=== PATIENT | male | born 1950 | race Hispanic/Latino ===

== ENCOUNTER 2019-01-20 16:20 | Inpatient (IN) | payer MEDICARE | END 2019-01-22 16:00 | disposition home or self-care (01) | LOC: EDH 16:20 → EDHIP 19:06 → 4CH 21:00 ==

== ENCOUNTER 2019-02-13 03:00 | Emergency (ER) | payer OTHER, MEDICARE ==
[~2019-02-13 03:00] MED LIST: ATOR10 PO; CARV3.12 PO; CLOP75TA32 PO; GLIP1TAB5 PO
[2019-02-13] MEDS ORDERED: FAMOTIDINE 20MG TAB 20 MG TAB ONE (03:17)
[2019-02-13] MEDS ORDERED: PREDNISONE 20 MG TABLET ONE (03:18)
[2019-02-13] MEDS ORDERED: ALBUTEROL SULFATE 0.083% 2.5 MG/3 ML INH IH ONE (03:57)
== END 2019-02-13 04:16 | disposition home or self-care (01) ==
LOC: EDH 03:00
DX: L50.0 Allergic urticaria (principal); I10 Essential (primary) hypertension; E78.5 Hyperlipidemia, unspecified; E11.9 Type 2 diabetes mellitus without complications; Z86.73 Personal history of transient ischemic attack (TIA), and cerebral infarction without residual deficits; Z79.899 Other long term (current) drug therapy; Z72.0 Tobacco use
CPT/HCPCS: 94640

== ENCOUNTER 2019-12-25 13:26 | Emergency (ER) | payer OTHER, MEDICARE ==
[2019-12-25 14:05] LABS: BASOPHILS % (AUTO) 0.3 % (0.0-5.0); EOSINOPHILS % (AUTO) 0.2 % (0.0-8.0); HEMATOCRIT 42.5 % (42-54); LYMPHOCYTES % (AUTO) 4.9 % (21.0-51.0); MEAN CORPUSCULAR HGB CONC 34.4 g/dL (32.0-36.0); MEAN CORPUSCULAR VOLUME 95.9 fL (79-99); MONOCYTES % (AUTO) 7.3 % (3.0-13.0); PLATELET COUNT (AUTO) 212 K/uL (130-400); RED BLOOD CELL COUNT(AUTO) 4.43 MIL/uL (4.50-6.20)
[2019-12-25 14:14] LABS: CREATININE 1.3 mg/dL (0.5-1.5)
[2019-12-25 14:15] LABS: INR 0.96 (0.85-1.15); PARTIAL THROMBOPLASTIN TIME 28.5 SEC (26.3-35.5); PROTHROMBIN TIME 10.1 SEC (9.6-11.6)
[2019-12-25 14:19] LABS: ALBUMIN 4.3 g/dL (3.5-5.0); TOTAL PROTEIN, SERUM 7.9 g/dL (6.0-8.3)
[2019-12-25 14:39] LABS: B-TYPE NATRIURETIC PEPTIDE 14 pg/mL (0-100)
[2019-12-25] MEDS ORDERED: SODIUM CHLORIDE 0.9% 1000ML 1,000 ML IV ONE (14:59)
[2019-12-25] MEDS ORDERED: OSELTAMIVIR PHOSPHATE 75 MG CAP ONE (14:59)
[2019-12-25 16:28] LABS: APPEARANCE,URINE Clear (CLEAR); BILIRUBIN,URINE Negative (NEGATIVE); COLOR,URINE Yellow (YELLOW); GLUCOSE, URINE (UA) Negative (NEGATIVE); KETONES,URINE Negative (NEGATIVE); LEUKOCYTE ESTERASE ,URINE Negative (NEGATIVE); NITRATE,URINE Negative (NEGATIVE); OCCULT BLOOD,URINE Negative (NEGATIVE); PROTEIN,URINE POS 2+ mg/dL (NEGATIVE); UROBILINOGEN,URINE 0.2 mg/dL (0.2-1.0)
[2019-12-25 16:43] LABS: BACTERIA,URINE Few /HPF (None Seen); RBC,URINE None Seen /HPF (0-1); SQUAMOUS EPITHELIAL CELL,UR 0-2 /HPF (0-2); WBC,URINE None Seen /HPF (0-1)
[2019-12-25 16:44] LABS: URIC ACID CRYSTALS,URINE Many /LPF (None Seen)
== END 2019-12-25 16:42 | disposition home or self-care (01) ==
LOC: EDH 13:26
DX: J09.X2 Influenza due to identified novel influenza A virus with other respiratory manifestations (principal); E11.65 Type 2 diabetes mellitus with hyperglycemia; E78.5 Hyperlipidemia, unspecified; I10 Essential (primary) hypertension
CPT/HCPCS: 36415; 71045; 80053; 81001; 82150; 82550; 83605; 83690; 83880; 84484; 85025; 85610; 85730; 87040 ×2; 87804 ×2; 93005; 96360; 99285; J7030

== ENCOUNTER → 2021-05-07 | Outpatient (CLI) | payer OTHER, MEDICARE ==
[~2021-05-07] MED LIST changes: +METO5 PO; +METR500T PO
== END | disposition home or self-care (01) ==
LOC: SHCH 10:32
PROVIDERS: ATTEND Internal Medicine Cardiovascular Disease
DX: R94.31 Abnormal electrocardiogram [ECG] [EKG] (principal); R07.9 Chest pain, unspecified
CPT/HCPCS: 93306; 93356

== ENCOUNTER 2022-02-17 08:23 | Inpatient (IN) | payer OTHER, MEDICARE ==
[~2022-02-17] VITALS: Ht 167.6 cm; Wt 66.9 kg
[2022-02-17 09:21] LABS: BASOPHILS % (AUTO) 0.8 % (0.0-5.0); HEMATOCRIT 36.2 % (42-54); MEAN CORPUSCULAR HEMOGLOBIN 32.3 pg (27.0-33.0); MEAN CORPUSCULAR HGB CONC 33.4 g/dL (32.0-36.0); MEAN CORPUSCULAR VOLUME 96.5 fL (79-99); MONOCYTES % (AUTO) 8.5 % (3.0-13.0); NEUTROPHILS % (AUTO) 66.1 % (40.0-77.0); PLATELET COUNT (AUTO) 545 K/uL (130-400); RED BLOOD CELL COUNT(AUTO) 3.75 MIL/uL (4.50-6.20); RED CELL DISTRIBUTION WIDTH 12.6 % (11.0-15.5); WHITE BLOOD COUNT (AUTO) 8.4 K/uL (4.8-10.8)
[2022-02-17 09:28] LABS: CREATININE 1.2 mg/dL (0.5-1.5); POTASSIUM 4.9 mmol/L (3.5-5.1)
[2022-02-17] MEDS ORDERED: ASPIRIN 81MG CHEW TAB PO SCH (09:30)
[2022-02-17 09:33] LABS: ALBUMIN 3.4 g/dL (3.5-5.0); BILIRUBIN,TOTAL 0.4 mg/dL (0.2-1.0); TOTAL PROTEIN, SERUM 7.2 g/dL (6.0-8.3)
[2022-02-17] MEDS ORDERED: CLOPIDOGREL 300MG TAB PO SCH (10:00)
[2022-02-17] MEDS ORDERED: FUROSEMIDE 40MG VIAL IV SCH (10:00)
[2022-02-17] MEDS ORDERED: IOHEXOL-350 75 ML VIAL IV ONE (10:49)
[2022-02-17] MEDS: FUROSEMIDE 40MG VIAL IV SCH ×2 (11:25→22:32)
[2022-02-17] MEDS ORDERED: ACETAMINOPHEN 325 MG TAB PO PRN (12:30)
[2022-02-17] MEDS ORDERED: AEC81 PO (13:46)
[2022-02-17] MEDS ORDERED: CARV6.25 PO (13:46)
[2022-02-17] MEDS: ATORVASTATIN 20 MG TABLET PO SCH (21:11)
[2022-02-17] MEDS: CARVEDILOL 3.125 MG TABLET PO SCH (21:11)
[2022-02-17 21:45] VITALS: BP 138/92
[2022-02-18] VITALS (7 sets, daily range): BP systolic 100–132; BP diastolic 44–69
[2022-02-18 03:50] LABS: BASOPHILS % (AUTO) 0.8 % (0.0-5.0); EOSINOPHILS % (AUTO) 2.7 % (0.0-8.0); HEMATOCRIT 36.7 % (42-54); LYMPHOCYTES % (AUTO) 18.2 % (21.0-51.0); MEAN CORPUSCULAR HEMOGLOBIN 31.5 pg (27.0-33.0); MEAN CORPUSCULAR VOLUME 95.6 fL (79-99); MONOCYTES % (AUTO) 9.9 % (3.0-13.0); NEUTROPHILS % (AUTO) 67.9 % (40.0-77.0); PLATELET COUNT (AUTO) 528 K/uL (130-400); RED BLOOD CELL COUNT(AUTO) 3.84 MIL/uL (4.50-6.20); RED CELL DISTRIBUTION WIDTH 12.7 % (11.0-15.5); WHITE BLOOD COUNT (AUTO) 8.6 K/uL (4.8-10.8)
[2022-02-18 04:02] LABS: CREATININE 1.5 mg/dL (0.5-1.5); POTASSIUM 4.4 mmol/L (3.5-5.1)
[2022-02-18 04:14] LABS: ALBUMIN 3.3 g/dL (3.5-5.0); BILIRUBIN,TOTAL 0.4 mg/dL (0.2-1.0); MAGNESIUM 1.8 mg/dL (1.80-2.40); PHOSPHORUS 5.2 mg/dL (2.5-4.9); THYROID STIMULATING HORMONE 0.49 uIU/mL (0.36-3.74); TOTAL PROTEIN, SERUM 6.9 g/dL (6.0-8.3)
[2022-02-18 04:17] LABS: B-TYPE NATRIURETIC PEPTIDE 1820 pg/mL (0-100)
[2022-02-18] MEDS: CARVEDILOL 3.125 MG TABLET PO SCH ×2 (09:24→20:23)
[2022-02-18] MEDS: LOSARTAN 25 MG TABLET PO SCH (09:24)
[2022-02-18] MEDS: ENOXAPARIN SODIUM 40 MG/0.4 ML SYRINGE SQ SCH (09:24)
[2022-02-18] MEDS: FUROSEMIDE 40MG VIAL IV SCH ×2 (09:24→22:22)
[2022-02-18] MEDS: CLOPIDOGREL 75MG TAB PO SCH (09:24)
[2022-02-18] MEDS: ATORVASTATIN 20 MG TABLET PO SCH (20:22)
[2022-02-19 03:58] VITALS: BP 109/59
[2022-02-19 04:40] LABS: CREATININE 1.8 mg/dL (0.5-1.5); POTASSIUM 4.2 mmol/L (3.5-5.1)
[2022-02-19 07:47] VITALS: BP 127/63
[2022-02-19] MEDS ORDERED: MAGNESIUM 2GM PREMIX 50ML 50 ML IV SCH (09:00)
[2022-02-19] MEDS: ASPIRIN 81 MG EC TAB PO SCH (09:52)
[2022-02-19] MEDS: LOSARTAN 25 MG TABLET PO SCH (09:52)
[2022-02-19] MEDS: CARVEDILOL 3.125 MG TABLET PO SCH ×2 (09:53→21:23)
[2022-02-19] MEDS: CLOPIDOGREL 75MG TAB PO SCH (09:53)
[2022-02-19] MEDS: ENOXAPARIN SODIUM 40 MG/0.4 ML SYRINGE SQ SCH (09:54)
[2022-02-19 12:00] VITALS: BP 120/67
[2022-02-19 16:00] VITALS: BP 124/66
[2022-02-19 20:00] VITALS: BP 119/71
[2022-02-19] MEDS: ATORVASTATIN 20 MG TABLET PO SCH (21:23)
[2022-02-20] VITALS (7 sets, daily range): BP systolic 108–142; BP diastolic 59–80
[2022-02-20 04:22] LABS: POTASSIUM 4.5 mmol/L (3.5-5.1)
[2022-02-20] MEDS: LOSARTAN 25 MG TABLET PO SCH (08:56)
[2022-02-20] MEDS: ASPIRIN 81 MG EC TAB PO SCH (08:56)
[2022-02-20] MEDS: CARVEDILOL 3.125 MG TABLET PO SCH ×2 (08:57→20:47)
[2022-02-20] MEDS: CLOPIDOGREL 75MG TAB PO SCH (08:58)
[2022-02-20] MEDS ORDERED: FUROSEMIDE 20 MG TABLET PO SCH (09:00)
[2022-02-20] MEDS: ENOXAPARIN SODIUM 40 MG/0.4 ML SYRINGE SQ SCH (09:07)
[2022-02-20] MEDS: ATORVASTATIN 20 MG TABLET PO SCH (20:47)
[2022-02-21 03:28] VITALS: BP 96/51
[2022-02-21 03:48] LABS: CREATININE 1.6 mg/dL (0.5-1.5); POTASSIUM 4.1 mmol/L (3.5-5.1)
[2022-02-21 07:00] VITALS: BP 107/54
[2022-02-21] MEDS: ASPIRIN 81 MG EC TAB PO SCH (09:29)
[2022-02-21] MEDS: CLOPIDOGREL 75MG TAB PO SCH (09:29)
[2022-02-21] MEDS: ENOXAPARIN SODIUM 40 MG/0.4 ML SYRINGE SQ SCH (09:29)
[2022-02-21] MEDS: CARVEDILOL 3.125 MG TABLET PO SCH ×2 (09:30→20:49)
[2022-02-21 11:00] VITALS: BP 122/69
[2022-02-21 16:00] VITALS: BP 114/63
[2022-02-21 19:01] VITALS: BP 133/70
[2022-02-21] MEDS: ATORVASTATIN 20 MG TABLET PO SCH (20:49)
[2022-02-21 23:30] VITALS: BP 114/60
[2022-02-22 04:16] VITALS: BP 132/68
[2022-02-22 07:45] VITALS: BP 115/58
[2022-02-22] MEDS ORDERED: FUROSEMIDE 20 MG TABLET PO SCH (09:00)
[2022-02-22] MEDS: ASPIRIN 81 MG EC TAB PO SCH (09:09)
[2022-02-22] MEDS: ENOXAPARIN SODIUM 40 MG/0.4 ML SYRINGE SQ SCH (09:09)
[2022-02-22] MEDS: CARVEDILOL 3.125 MG TABLET PO SCH (09:10)
[2022-02-22] MEDS: CLOPIDOGREL 75MG TAB PO SCH (09:10)
[2022-02-22 12:00] VITALS: BP 132/72
[2022-02-22] MEDS ORDERED: CARV3.1262 PO (14:42)
[2022-02-22] MEDS ORDERED: CLOP75TA14 PO (14:42)
[2022-02-22] MEDS ORDERED: FURO20TA6 PO (14:42)
[2022-02-22] MEDS ORDERED: ATOR20TA65 PO (14:42)
== END 2022-02-22 16:30 | disposition home or self-care (01) | DRG 291 ==
LOC: EDH 08:23 → EDHIP 12:01 → 2DH 21:37
PROVIDERS: ADMIT Internal Medicine Critical Care Medicine; ATTEND Internal Medicine Critical Care Medicine
DX: I11.0 Hypertensive heart disease with heart failure (principal); I50.21 Acute systolic (congestive) heart failure; I69.354 Hemiplegia and hemiparesis following cerebral infarction affecting left non-dominant side; N17.9 Acute kidney failure, unspecified; E78.5 Hyperlipidemia, unspecified; E11.9 Type 2 diabetes mellitus without complications; Z20.822 Contact with and (suspected) exposure to COVID-19; N20.0 Calculus of kidney; D69.6 Thrombocytopenia, unspecified; E78.00 Pure hypercholesterolemia, unspecified; I42.9 Cardiomyopathy, unspecified; Z79.899 Other long term (current) drug therapy; I25.2 Old myocardial infarction; Z87.891 Personal history of nicotine dependence; Z82.49 Family history of ischemic heart disease and other diseases of the circulatory system; Z87.442 Personal history of urinary calculi
CPT/HCPCS: 36415; 71045; 71275; 80048; 80053; 80061; 82948; 83735; 83880; 84100; 84145; 84443; 84484; 85025; 85378; 87635; 87804; 92610; 93005; 93306; 93970; 96374; 99291; G0378; J1650; J1940; Q9967

== ENCOUNTER 2022-12-19 06:50 | Observation (INO) | payer OTHER, MEDICARE ==
[~2022-12-19] VITALS: Ht 167.6 cm; Wt 83.6 kg
[~2022-12-19 06:50] MED LIST changes: +AEC81 PO; -ATOR10 PO; +ATOR20TA65 PO; -CARV3.12 PO; +CARV3.1262 PO; +CLOP-31 PO; -CLOP75TA32 PO; +FURO20TA6 PO; -GLIP1TAB5 PO; -METO5 PO; -METR500T PO
[2022-12-19 07:30] LABS: BASOPHILS % (AUTO) 0.2 % (0.0-5.0); EOSINOPHILS % (AUTO) 1.5 % (0.0-8.0); HEMATOCRIT 41.7 % (42-54); LYMPHOCYTES % (AUTO) 15.8 % (21.0-51.0); MEAN CORPUSCULAR HEMOGLOBIN 32.5 pg (27.0-33.0); MEAN CORPUSCULAR HGB CONC 33.8 g/dL (32.0-36.0); MEAN CORPUSCULAR VOLUME 96.1 fL (79-99); MONOCYTES % (AUTO) 9.7 % (3.0-13.0); NEUTROPHILS % (AUTO) 72.6 % (40.0-77.0); PLATELET COUNT (AUTO) 263 K/uL (130-400); RED BLOOD CELL COUNT(AUTO) 4.34 MIL/uL (4.50-6.20); RED CELL DISTRIBUTION WIDTH 12.1 % (11.0-15.5); WHITE BLOOD COUNT (AUTO) 8.5 K/uL (4.8-10.8)
[2022-12-19 07:52] LABS: ALBUMIN 3.9 g/dL (3.5-5.0); CREATININE 1.5 mg/dL (0.5-1.5); POTASSIUM 5.2 mmol/L (3.5-5.1); TOTAL PROTEIN, SERUM 7.4 g/dL (6.0-8.3)
[2022-12-19] MEDS ORDERED: ASPIRIN 300 MG SUPPOSITORY PR SCH (08:30)
[2022-12-19 09:04] LABS: APPEARANCE,URINE CLEAR (CLEAR); BILIRUBIN,URINE NEGATIVE (NEGATIVE); COLOR,URINE YELLOW (YELLOW); GLUCOSE, URINE (UA) NEGATIVE (NEGATIVE); KETONES,URINE 20 mg/dL (NEGATIVE); LEUKOCYTE ESTERASE ,URINE NEGATIVE Leu/uL (NEGATIVE); NITRATE,URINE NEGATIVE (NEGATIVE); OCCULT BLOOD,URINE NEGATIVE (NEGATIVE); PROTEIN,URINE 50 mg/dL (NEGATIVE); UROBILINOGEN,URINE 0.2 mg/dL (0.2-1.0)
[2022-12-19 09:39] LABS: BACTERIA,URINE FEW /HPF (None Seen); MUCUS,URINE RARE LPF (None Seen); OTHER CASTS, URINE 1 /LPF (None Seen); SQUAMOUS EPITHELIAL CELL,UR RARE /HPF (0-2)
[2022-12-19] MEDS: ONDANSETRON 4MG INJ IVP ONE ×2 (13:44→13:50)
[2022-12-19] MEDS: MORPHINE 2 MG SYG IVP ONE ×2 (13:45→13:50)
[2022-12-19] MEDS ORDERED: DOCUSATE SODIUM 100 MG CAP PO PRN (14:30)
[2022-12-19] MEDS ORDERED: ACETAMINOPHEN 325 MG TAB PO PRN (14:30)
[2022-12-19] MEDS ORDERED: LACTULOSE 20 GM/30 ML UDCUP PO PRN (14:30)
[2022-12-19] MEDS ORDERED: HYDRALAZINE 20MG/ML VIAL IV PRN (14:30)
[2022-12-19] MEDS ORDERED: ONDANSETRON 4MG INJ IVP PRN ×2 (14:30→15:00)
[2022-12-19] MEDS: HYDROMORPHONE 0.5 MG SYG (0.5MG/0.5ML) IVP PRN ×2 (15:07→22:30)
[2022-12-19] MEDS: LACTATED RINGERS 1000ML 1,000 ML IV SCH ×2 (15:07→21:48)
[2022-12-19 18:30] VITALS: BP 114/59
[2022-12-19 20:00] VITALS: BP 117/65
[2022-12-20] VITALS (7 sets, daily range): BP systolic 116–140; BP diastolic 59–73
[2022-12-20] MEDS: HYDROMORPHONE 0.5 MG SYG (0.5MG/0.5ML) IVP PRN ×2 (04:52→12:34)
[2022-12-20] MEDS: LACTATED RINGERS 1000ML 1,000 ML IV SCH ×2 (06:30→20:10)
[2022-12-20 07:15] LABS: CREATININE 1.5 mg/dL (0.5-1.5); MAGNESIUM 2.1 mg/dL (1.80-2.40); PHOSPHORUS 4.1 mg/dL (2.5-4.9); POTASSIUM 4.3 mmol/L (3.5-5.1); THYROID STIMULATING HORMONE 0.68 uIU/mL (0.36-3.74)
[2022-12-20] MEDS: PANTOPRAZOLE 40 MG TAB DR PO SCH (08:30)
[2022-12-21 03:29] VITALS: BP 110/59
[2022-12-21] MEDS: LACTATED RINGERS 1000ML 1,000 ML IV SCH (06:10)
[2022-12-21 07:30] VITALS: BP 140/66
[2022-12-21] MEDS: PANTOPRAZOLE 40 MG TAB DR PO SCH (08:45)
[2022-12-21 11:30] VITALS: BP 127/56
[2022-12-21] MEDS ORDERED: [UNRECOGNIZED DRUG - CODE] PO (15:14)
[2022-12-21] MEDS ORDERED: LACT PO (15:14)
[2022-12-21 15:40] VITALS: BP 125/60
== END 2022-12-21 16:05 | disposition home or self-care (01) ==
LOC: EDH 06:50 → EDHIP 14:13 → 4BH 18:42
PROVIDERS: ADMIT Internal Medicine Critical Care Medicine; ATTEND Internal Medicine Critical Care Medicine
DX: R10.9 Unspecified abdominal pain (principal); K59.00 Constipation, unspecified; K56.609 Unspecified intestinal obstruction, unspecified as to partial versus complete obstruction; I11.0 Hypertensive heart disease with heart failure; I50.22 Chronic systolic (congestive) heart failure; E11.9 Type 2 diabetes mellitus without complications; I21.4 Non-ST elevation (NSTEMI) myocardial infarction; E78.00 Pure hypercholesterolemia, unspecified; Z87.442 Personal history of urinary calculi; Z79.899 Other long term (current) drug therapy; Z98.890 Other specified postprocedural states; Z86.73 Personal history of transient ischemic attack (TIA), and cerebral infarction without residual deficits; Z79.82 Long term (current) use of aspirin; Z95.1 Presence of aortocoronary bypass graft
CPT/HCPCS: 96374; 96376 ×2; 96361 ×4; 99285; 84484; 80053; 83690; 85025; 81001; 36415 ×2; 74018; 71045; 74176; 76700; 93005; 84443; 82550; 83735; 84100; 80048; G0378 ×50; J7120 ×2; J2405; J1170 ×4